=== PATIENT | male | born 1985 | race Caucasian/White ===

== ENCOUNTER 2016-07-08 10:36 | Emergency (ER) | payer MEDICAID, OTHER ==
[~2016-07-08] VITALS: Ht 172.7 cm; Wt 74.8 kg
[2016-07-08 11:00] VITALS: BP 143/76
--- NOTE | 2016-07-08 12:15 | EKG ---
[facility] [address] [place] [id number] Test Date: 2016-07-08 Test Time: 11:42:00 Pat Name: NUBIA TURPIN Department: Room: Gender: M [employer]: : 1985 Requested By: BREANNA RICH Order Number: [id number] Reading MD: Lalito Hidalgo Measurements Intervals [place] Rate: 78 P: 46 ND: 104 QRS: 78 QRSD: 94 T: 64 QT: 362 QTc: 416 Interpretive Statements SINUS RHYTHM Electronically Signed On 07-11-2016 10:20:11 [employer] by Lalito Hidalgo
--- NOTE | 2016-07-08 12:53 | RAD ---
Indication: Left arm pain. Grayscale, color-flow and duplex Doppler evaluation of the left upper extremity venous system was performed. The left internal jugular vein as well as the left subclavian and axillary veins are patent. The brachial, basilic and cephalic veins are patent. The radial and ulnar veins are patent. No thrombus is detected. No fluid collection is seen. Impression: Unremarkable left upper extremity venous Doppler.
--- NOTE | 2016-07-08 13:10 | PHYS DOC ---
Past Medical History Past Medical History: No Pertinent History Past Surgical History: No Surgical History Smokin Pack Per Day Alcohol Use: Occasionally Drug Use: Marijuana, Methamphetamine Social History Narrative: PT REPORTS SMOKING METH FOUR DAYS AGO Adult General Chief Complaint Chief Complaint: UPPER EXTREMITY PAIN HPI HPI Patient is a 30 year old male who presents with atraumatic left upper arm pain for 3 days. Reports that when he applies pressure over the upper arm he notices a bump along the vein. He's had intermittent chest pain ongoing for many months now. He has not noticed any pattern to the onset of the pain, stating that it occurs both at rest and with activity. He denies any shortness of breath. He has not had any numbness or tingling in the arm. He does not have a PCP. Review of Systems Review of Systems Constitutional: Denies fever or chills. [] Respiratory: Denies cough or shortness of breath. [] Cardiovascular: Denies palpitations or edema. Reports intermittent chest pain. GI: Denies abdominal pain, nausea, vomiting, bloody stools or diarrhea. [] Musculoskeletal: Denies back pain or joint pain. Reports left upper arm pain. Integument: Denies rash or skin lesions. [] Neurologic: Denies headache, focal weakness or sensory changes. [] All systems reviewed and negative unless otherwise stated in the HPI. Allergies Allergies Allergies Coded Allergies Type Severity Reaction Last Updated Verified No Known Drug Allergies 07/02/15 No Physical Exam Physical Exam Constitutional: Well developed, well nourished, no acute distress, non-toxic appearance. [] HENT: Normocephalic, atraumatic, bilateral external ears normal, oropharynx moist, no oral exudates, nose normal. [] Eyes: PERRLA, EOMI, conjunctiva normal, no discharge. [] Neck: Normal range of motion, no tenderness, supple, no stridor. [] Cardiovascular: Heart rate regular rhythm, no murmur [] Lungs & Thorax: Bilateral breath sounds clear to auscultation without wheezes, rales, or rhonchi. There is no chest wall tenderness. Skin: Warm, dry, no erythema, no rash. There are what appear to be track johns on the left antecubital fossa but the patient states that they are just scratches and denies IVDU. Extremities: No tenderness on palpation of the left upper arm, no cyanosis, no clubbing, ROM intact, no edema. 2+ radial and ulnar pulses. Less than 2 second capillary refill in the fingers distally. Light touch sensation intact in the fingers distally. Neurologic: Alert and oriented X 3, normal motor function, normal sensory function, no focal deficits noted. Filter Pulp Washer strength equal bilaterally. Psychologic: Affect normal, judgement normal, mood normal. [] Current Patient Data Vital Signs Vital Signs Date Time Temp Pulse Resp B/P Pulse Ox O2 Delivery O2 Flow Rate FiO2 07/08/16 11:00 97.5 82 18 99 Room Air 97.5 EKG EKG EKG at 1142. Heart rate 78 bpm. Sinus rhythm without any acute ischemic changes or STEMI, as interpreted by Dr. Martin. Radiology/Procedures Radiology/Procedures REASON: pain in upper arm w/o injury, feels like it is in the vein PROCEDURE: VENOUS UPPER EXTREMITY LEFT Indication: Left arm pain. Grayscale, color-flow and duplex Doppler evaluation of the left upper extremity venous system was performed. The left internal jugular vein as well as the left subclavian and axillary veins are patent. The brachial, basilic and cephalic veins are patent. The radial and ulnar veins are patent. No thrombus is detected. No fluid collection is seen. Impression: Unremarkable left upper extremity venous Doppler. Course & Med Decision Making Course & Med Decision Making Pertinent Labs and Imaging studies reviewed. (See chart for details) Patient is a 28-year-old male who presents with atraumatic left upper arm pain for 3 days in many months of intermittent chest pain. On exam, there is no tenderness of the left upper arm. He is neurovascularly intact without any evidence of trauma or infection. Lungs are clear and heart rate and rhythm are regular. EKG does not show any acute changes. Ultrasound of the upper extremity does not show any DVT. Patient is discharged home with prescription for anti- inflammatory and pain medication. He is instructed to follow-up with a primary care provider and given a brochure of providers to establish care. Return precautions were discussed. He verbalizes understanding and agrees with plan. Dragon Disclaimer Dragon Disclaimer This electronic medical record was generated, in whole or in part, using a voice recognition dictation system. Departure Departure Impression: Primary Impression: Arm pain, left Disposition: HOME, SELF-CARE Condition: STABLE Referrals: NO PCP (PCP) Patient Instructions: Musculoskeletal Pain Additional Instructions: Your EKG and ultrasound were normal today. Please follow up with a primary care provider regarding your pain if it continues. Return to the emergency department if you have chest pain, shortness of breath, or other new or concerning symptoms. Scripts Tramadol Hcl (Ultram)50 Mg [id number] Mg PO Q6H PRN PAIN #20 TAB Prov:BREANNA RICH 07/08/16 Ibuprofen 600 Mg [id number] Mg PO PRN Q6HRS PRN INFLAMMATION #20 TAB Prov:BREANNA RICH 07/08/16 BREANNA RICH Jul 08, 2016 13:10
[2016-07-08] MEDS ORDERED: IBUP-1007 PO (13:28)
[2016-07-08] MEDS ORDERED: TRAM-29 PO (13:28)
== END 2016-07-08 13:31 | disposition home or self-care (01) ==
LOC: ER 10:36
DX: M79.602 Pain in left arm (principal); F17.200 Nicotine dependence, unspecified, uncomplicated; F12.10 Cannabis abuse, uncomplicated; F15.10 Other stimulant abuse, uncomplicated
CPT/HCPCS: 93005; 93971; 99284-25